=== PATIENT | female | born 1975 | race African-American/Black ===

== ENCOUNTER 2016-03-29 00:28 | Emergency (ER) | payer BC ==
[~2016-03-29] VITALS: Ht 172.7 cm; Wt 93.3 kg
[~2016-03-29 00:28] MED LIST: AUGMENTIN875 MG PO; AZITHROMYCIN250 MG1 PO; FLONASE16 G1 BOTH NARES; LAMICTAL200 MG PO; MOTRIN600 MG PO; PREDNISONE20 MG PO; PROVENTIL,2.5 MG/3 M IH; PROVENTIL2.5 MG/3 M IH; TRAZODONE HCL150 MG PO; TRAZODONE HCL50 MG PO; VENTOLIN HFA18 GM IH
[2016-03-29 01:05] LABS: HEMATOCRIT 38.6 % (36.0-46.0); MCHC 33.7 G/DL (30.0-36.0); MCV 88.9 FL (83-99); MEAN PLAT.VOLUME 8.7 uM^3 (9.5-12.4); PLATELET COUNT 328 K/uL (156-360); RBC DIS.WIDTH-CV 12.1 % (11.8-14.6); RBC DIS.WIDTH-SD 38.5 % (39-53); RED BLOOD COUNT 4.34 M/uL (3.80-5.20); WHITE BLOOD COUNT 7.4 K/uL (4.1-10.2)
[2016-03-29 01:18] LABS: CHLORIDE 106 mEq/L (99-109); POTASSIUM 3.6 mEq/L (3.7-5.4); SODIUM 138 mEq/L (136-147)
[2016-03-29 01:20] LABS: GLUCOSE 121 mg/dL (70-99)
[2016-03-29 01:22] LABS: ANION GAP 9 MEQ/L (2-14)
[2016-03-29 01:24] LABS: GFR ESTIMATE (CALCULATED) > 59 mL/min/
[2016-03-29 01:25] LABS: UREA NITROGEN (BUN) 11 mg/dL (9-23)
[2016-03-29 01:29] LABS: TROP-I INTERPRETATION NEGATIVE; TROPONIN-I < 0.01 ng/mL (0.0-0.30)
[2016-03-29 03:08] LABS: TROP-I INTERPRETATION NEGATIVE; TROPONIN-I < 0.01 ng/mL (0.0-0.30)
[2016-03-29 03:43] VITALS: BP 129/92
== END 2016-03-29 03:44 | disposition home or self-care (01) ==
LOC: EME 00:28
PROVIDERS: Physician Assistant Medical
DX: R07.9 Chest pain, unspecified (principal); R20.2 Paresthesia of skin; F17.200 Nicotine dependence, unspecified, uncomplicated
CPT/HCPCS: 71020; 80048; 84484; 85027; 93005; 99281; 99284